=== PATIENT | female | born 1990 | race Caucasian/White ===

== ENCOUNTER → 2017-09-16 | Outpatient (CLI) | payer OTHER ==
--- NOTE | 2017-09-16 10:45 | DIAGNOSTIC IMAGING REPORT ---
Brain MRI WITHOUT CONTRAST HISTORY: Headache. Chronic fatigue. Dizziness. TECHNIQUE: Multiplanar multisequence MRI of the brain was performed without the use of contrast. COMPARISON STUDY: None. FINDINGS: There are no areas of restricted diffusion to suggest acute infarction. The midline structures are intact. The paranasal sinuses are clear. The mastoid air cells are clear. The ventricles and sulci are within normal limits for age. There is no mass, hematoma, midline shift. The major vascular flow-voids at the skull base are well maintained. 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 There is a single punctate foci of T2 hyperintensity seen within the subcortical white matter of the left parietal lobe best seen on coronal image 19 of the FLAIR sequences. IMPRESSION: A single punctate focus of T2 hyperintensity within the subcortical white matter of the left parietal lobe. Given this single finding this is of doubtful clinical significance and is unlikely to represent a focus of demyelination. However, this could be seen in the setting of migraines. Otherwise, normal brain MRI. Electronically signed by: Terry Guerrero M.D. 09/16/2017 10:44 AM Dictated Date/Time: 09/16/2017 10:35 AM
== END | disposition home or self-care (01) ==
LOC: C.MRI 09:34
PROVIDERS: ATTEND Internal Medicine Rheumatology
DX: R42 Dizziness and giddiness (principal); R53.82 Chronic fatigue, unspecified; R51 Headache